=== PATIENT | female | born 1995 | race Caucasian/White ===

== ENCOUNTER 2019-01-30 12:02 | Emergency (ER) | payer SELFPAY ==
[2019-01-30] MEDS ORDERED: Ondansetron PF 4 MG/2 ML Vial ONE (12:16)
[2019-01-30] MEDS ORDERED: Promethazine HCl 25 MG/ML VIAL ONE (13:21)
== END 2019-01-30 14:28 | disposition home or self-care (01) ==
LOC: ERS 12:02
DX: B34.9 Viral infection, unspecified (principal)
CPT/HCPCS: 96361; 96365; 96375; J2405; J2550